=== PATIENT | male | born 2000 | race Caucasian/White ===

== ENCOUNTER 2022-09-03 14:38 | Outpatient (CLI) | payer BC | END 2022-09-03 14:39 | disposition home or self-care (01) | LOC: CSHRAD 14:38 | PROVIDERS: ATTEND Family Medicine | DX: S69.92XA Unspecified injury of left wrist, hand and finger(s), initial encounter (principal); S62.512A Displaced fracture of proximal phalanx of left thumb, initial encounter for closed fracture ==